=== PATIENT | female | born 1935 ===

== ENCOUNTER 2018-06-06 12:28 | Emergency (ER) | payer OTHER ==
[~2018-06-06] VITALS: Ht 157.5 cm; Wt 44.0 kg
[2018-06-06] MEDS ORDERED: CLONAZEPAM0.5 MG (12:49)
[2018-06-06] MEDS ORDERED: NORVASC5 MG (12:49)
== END 2018-06-06 15:53 | disposition home or self-care (01) ==
LOC: ER 12:28
DX: K21.9 Gastro-esophageal reflux disease without esophagitis (principal)